=== PATIENT | female | born 1965 | race Caucasian/White ===

== ENCOUNTER 2017-07-03 17:51 | Inpatient (IN) | payer SELFPAY ==
[~2017-07-03] VITALS: Ht 152.4 cm; Wt 68.0 kg
--- NOTE | ~2017-07-03 | EC ---
PATIENT:JEWEL CHAHAL DATE OF SERVICE: 07/04/17 SEX: F MEDICAL RECORD: [id number] DATE OF : 67 LOCATION:[facility] AGE OF PATIENT: 51 ADMISSION DATE: 07/04/17 REFERRING PHYSICIAN: INTERPRETING PHYSICIAN: KEVIN KRISHNA MD ECHOCARDIOGRAM REPORT ECHO CHARGES 4 ECHO COMPLETE CLINICAL DIAGNOSIS: R TIA/ CHEST PAIN AND L ARM PAIN ECHOCARDIOGRAPHIC MEASUREMENTS (adult normal given) AC root (d.<3.7cm) 2.9 cm LV Septum d (<1.2 cm> 1.2 cm Valve Excursion 1.5 cm LV Septum (systole) 1.4 cm Left Atria (s.<4.0cm> 3.0 cm LVPW d(<1.2cm) 1.1 cm RV (d.<2.3cm) 2.7 cm LVPW (sytole) 1.4 cm LV diastole(<5.6CM) 4.3 cm MV E-F(>70mm/sec) cm LV systole 2.8 cm LVOT Diameter 1.7 cm MV exc.(>10mm) 2.2 cm Est.ejection fraction (50-75%) % Pericardial Effusion N DOPPLER: LVIT cm/sec A 76.0 cm/sec E 66.0 cm/sec LA cm/sec RVSP 19 mmHg LVOT 101 cm/sec AOP1/2T m/s Asc. Ao 134 cm/sec RVOT 69 cm/sec RA cm/sec PA 114 cm/sec AV Gradient Peak 7.23 mmHg AV Mean 4.32 mmHg AV Area 2.1 cm MV Gradient Peak 1.82 mmHg MV Mean 0.71 mmHg MV Area cm COMMENTS: Pelota Maker: 2 SHELBY ASHFORD Ham Smoker: 2 Dr. Mohr TAPE# PACS DATE OF SERVICE: 07/04/2017 Addendum FINDINGS: Difficult to visualize; however, there were no bubbles seen to cross from the right atrium into the left atrium upon this study. TRANSINT:[id number] Voice Confirmation ID: [id number] DOCUMENT ID: [id number] ECHOCARDIOGRAM REPORT [id number] TIRSOJEWEL KEVIN KRISHNA MD CC: [id number] DICTATION DATE: 07/05/17 0804 CORRUGATOR OPERATOR HELPER: 07/05/17 0814 ADM IN [address] [address]
[2017-07-03 18:26] LABS: BASOPHILS 0.3 % (0-2); EOSINOPHILS 0.9 % (0-7); HEMATOCRIT 42.6 % (36.0-48.0); HEMOGLOBIN 14.7 g/dL (12-16); IMMATURE GRANULOCYTES 0.2 % (0-5); LYMPHOCYTES 27.2 % (15-50); MCH 31.5 pg (26.0-34.0); MCHC 34.5 g/dL (31.0-37.0); MCV 91.4 fL (80.0-100.0); MEAN PLATELET VOLUME 10.4 fL (7.4-10.4); MONOCYTES 8.6 % (2-11); NEUTROPHILS 62.8 % (40-80); PLATELET COUNT 203 10x3/uL (130-400); RBC 4.66 10x6/uL (4.00-5.40); RDW 12.5 % (11.5-14.5); WBC 12.9 10x3/uL (4.8-10.8)
[2017-07-03 18:36] LABS: APTT 32.1 SECONDS (22.8-39.4); INR 0.97 (0.85-1.17); PROTIME 12.7 SECONDS (11.6-15.0)
[2017-07-03 18:50] LABS: ALBUMIN 4.1 g/dL (3.4-5.0); ALKALINE PHOSPHATASE 88 U/L (46-116); ALT (SGPT) 33 U/L (10-68); CALC OSMOLALITY 280 mosm/kg (275-300); CALCIUM 9.3 mg/dL (8.5-10.1); CARBON DIOXIDE 27.8 mmol/L (21.0-32.0); CHLORIDE - SERUM 106 mmol/L (98-107); CREATININE - SERUM 0.9 mg/dL (0.6-1.3); GLUCOSE 87 mg/dL (74-106); POTASSIUM - SERUM 4.2 mmol/L (3.5-5.1); PROTEIN - SERUM 7.7 g/dL (6.4-8.2); SODIUM 141 mmol/L (136-145); UREA NITROGEN 16 mg/dL (7-18); eGFR NON AFRICAN AMERICAN 70 mL/min (90-120)
[2017-07-03 19:00] LABS: CKMB 0.6 U/L (0.0-3.6); CREATINE KINASE 104 UL (21-215); TROPONIN-I < 0.017 ng/mL (0.000-0.060)
[2017-07-03 20:00] VITALS: BP 103/53
[2017-07-04] VITALS: BP 86/45
[2017-07-04 00:35] VITALS: BMI 29.3
[2017-07-04 01:48] LABS: CKMB 0.7 U/L (0.0-3.6); CREATINE KINASE 83 UL (21-215)
[2017-07-04 01:51] LABS: TROPONIN-I < 0.017 ng/mL (0.000-0.060)
--- NOTE | 2017-07-04 03:16 | NUR ---
213)rec'd.via w/c from er aao x3.denies blurred or double vision. c/o weakness left side. lan/wan engineer slightly weaker.assist to bathroom with moderate assist.encouraged to call for help when needing to get up. family member at bedside.rec.d, report from tahir keen states dr. villegas was notified of consult while pt in er. will continue to observe for any chges in neurostatus and follow current plan of care.
--- NOTE | 2017-07-04 03:57 | NUR ---
EYES CLOSED RESPIRATIONS WITH EASE AND UNLABORED. LKEFT SIDED WEAKNESS CONTINUES. ASSESSMENT DONE PER ADMIT PACKET.
[2017-07-04 04:00] VITALS: BP 98/53
--- NOTE | 2017-07-04 07:30 | NUR ---
ASSESSMENT COMPLETE. SL TO L HAND. 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 L SIDED WEAKNESS NOTED TO LUE. GAIT STEADY AT THIS TIME.
[2017-07-04 07:51] LABS: CKMB 0.3 U/L (0.0-3.6); CREATINE KINASE 76 UL (21-215)
[2017-07-04 07:53] LABS: TROPONIN-I < 0.017 ng/mL (0.000-0.060)
[2017-07-04 08:31] VITALS: BP 100/62
--- NOTE | 2017-07-04 09:35 | NUR ---
CALLED TO ROOM BY PATIENT'S . STATES THAT SHE HAVING THE SAME SYMPTOMS SHE WAS EXPERIENCING BEFORE COMING TO HOSPITAL. COMPLAINING OF CHEST PAIN AND PRESSURE TO L UPPER CHEST. DESCRIBES THE FEELING LIKE SOMEONE IS DRILLING THROUGH HER. VSS. BP 97/60 HR 75 O2 SAT 97% ON RA. TEMP 97.7.
--- NOTE | 2017-07-04 09:40 | NUR ---
EKG PERFORMED RESULTING IN SINUS RHYTHM. 02 2L PLACED ON PATIENT.
--- NOTE | 2017-07-04 09:50 | NUR ---
DR LLAMAS NOTIFIED OF PATIENT COMPLAINTS. ORDER RECEIVED FOR STAT CARDIAC ENZYMES AND CARDIOLOGY CONSULT.
--- NOTE | 2017-07-04 11:00 | NUR ---
DENIES ANY NEEDS AT PRESENT.
[2017-07-04 11:09] LABS: BASOPHILS 0.6 % (0-2); EOSINOPHILS 2.9 % (0-7); HEMATOCRIT 41.7 % (36.0-48.0); HEMOGLOBIN 14.1 g/dL (12-16); IMMATURE GRANULOCYTES 0.1 % (0-5); LYMPHOCYTES 34.4 % (15-50); MCH 31.4 pg (26.0-34.0); MCHC 33.8 g/dL (31.0-37.0); MCV 92.9 fL (80.0-100.0); MEAN PLATELET VOLUME 10.2 fL (7.4-10.4); MONOCYTES 9.7 % (2-11); NEUTROPHILS 52.3 % (40-80); PLATELET COUNT 197 10x3/uL (130-400); RBC 4.49 10x6/uL (4.00-5.40); RDW 12.4 % (11.5-14.5); WBC 7.8 10x3/uL (4.8-10.8)
[2017-07-04 11:40] LABS: ALBUMIN 3.5 g/dL (3.4-5.0); ALKALINE PHOSPHATASE 86 U/L (46-116); ALT (SGPT) 28 U/L (10-68); BILIRUBIN - TOTAL 0.47 mg/dL (0.2-1.3); CALC OSMOLALITY 278 mosm/kg (275-300); CALCIUM 8.6 mg/dL (8.5-10.1); CARBON DIOXIDE 30.1 mmol/L (21.0-32.0); CHLORIDE - SERUM 105 mmol/L (98-107); CREATINE KINASE 76 UL (21-215); GLUCOSE 89 mg/dL (74-106); POTASSIUM - SERUM 4.3 mmol/L (3.5-5.1); SODIUM 139 mmol/L (136-145); UREA NITROGEN 18 mg/dL (7-18); eGFR NON AFRICAN AMERICAN 62 mL/min (90-120)
[2017-07-04 11:41] LABS: TROPONIN-I < 0.017 ng/mL (0.000-0.060)
[2017-07-04 12:11] LABS: LDL-HDL RATIO 3.3 ratio (1.5-3.5)
--- NOTE | 2017-07-04 12:26 | NUR ---
OFF FLOOR TO MRI VIA .
[2017-07-04 12:40] VITALS: BP 100/57
[2017-07-04 14:02] VITALS: Ht 152.4 cm; Wt 68.0 kg
[2017-07-04 14:30] LABS: CKMB 0.4 U/L (0.0-3.6); CREATINE KINASE 78 UL (21-215)
[2017-07-04 14:33] LABS: TROPONIN-I < 0.017 ng/mL (0.000-0.060)
--- NOTE | 2017-07-04 15:13 | NUR ---
REFUSING TO WEAR SCD'S AT THIS TIME.
--- NOTE | 2017-07-04 17:47 | NUR ---
NO CHANGES NOTED AT PRESENT.
--- NOTE | 2017-07-04 19:17 | NUR ---
OT NOTES: PT COMPLETED BED MOB WITH SBA.PT COMPLETED DYNAMIC SITTING BALANCE AXS AT EOB WITH SBA. PT COMPLETED SIT TO STAND WITH SBA. PT COMPLETED UB DRESSING WITH SBA. PT COMPLETED GROOMING TASKS WITH SBA. HEIN ADVISED PT TO REQUEST ASSIST TO BATHROOM TO DECREASE FALL RISK. THANK YOU, MELVINA ORO/Lorie
--- NOTE | 2017-07-04 19:30 | NUR ---
INTRODUCED SELF TO PATIENT. VERY PLEASENT. REPORTED A HEADACHE 6/10 IN THE BACK OF HER HEAD AND PAIN IN THE LEFT SIDE OF CHEST AND LEFT ARM RATED 7/10. PATIENT STATED "I HAVE HAD CONSTANT PAIN IN MY CHEST SINCE YESTERDAY, THE PAIN JUST GETS WORSE SOMETIMES BUT IT IS ALWAYS THERE." ASKED HER ABOUT THE PAIN IN HER CHEST EARLIER IN THE DAY WHEN THEY CALLED A RAPID RESPONES, SHE STATED "IT WAS A 9/10 THEN." ASKED HER ABOUT HER HEADACHE, SHE STATED "IT COMES AND GOES." PATIENT DENIES NEEDS.
[2017-07-04 19:48] LABS: CREATINE KINASE 74 UL (21-215); TROPONIN-I < 0.017 ng/mL (0.000-0.060)
[2017-07-04 20:00] VITALS: BP 118/58
[2017-07-05] VITALS: BP 104/61
[2017-07-05 02:01] LABS: CREATINE KINASE 64 UL (21-215); TROPONIN-I < 0.017 ng/mL (0.000-0.060)
[2017-07-05 04:00] VITALS: BP 105/61
[2017-07-05 06:06] LABS: BASOPHILS 0.6 % (0-2); HEMATOCRIT 41.1 % (36.0-48.0); HEMOGLOBIN 13.7 g/dL (12-16); IMMATURE GRANULOCYTES 0.1 % (0-5); LYMPHOCYTES 41.3 % (15-50); MCH 31.1 pg (26.0-34.0); MCHC 33.3 g/dL (31.0-37.0); MCV 93.2 fL (80.0-100.0); MEAN PLATELET VOLUME 10.2 fL (7.4-10.4); MONOCYTES 10.6 % (2-11); NEUTROPHILS 44.4 % (40-80); PLATELET COUNT 200 10x3/uL (130-400); RBC 4.41 10x6/uL (4.00-5.40); RDW 12.3 % (11.5-14.5); WBC 8.6 10x3/uL (4.8-10.8)
[2017-07-05 07:15] LABS: ALBUMIN 3.3 g/dL (3.4-5.0); ANION GAP 10.1 mmol/L (8-16); BILIRUBIN - TOTAL 0.36 mg/dL (0.2-1.3); CALCIUM 8.7 mg/dL (8.5-10.1); CARBON DIOXIDE 29.4 mmol/L (21.0-32.0); POTASSIUM - SERUM 4.5 mmol/L (3.5-5.1); PROTEIN - SERUM 6.8 g/dL (6.4-8.2)
--- NOTE | 2017-07-05 07:30 | NUR ---
PATIENT RECEIVED IN HIGH PAGAN POSITION ALERT WITH FAMILY PRESENT. NO SIGNS OF DISTRESS NOTED. DENIES NEEDS. SIDE RAILS UP X2. BED IN LOW POSITION. CALL LIGHT IN REACH.
[2017-07-05 07:58] VITALS: BP 101/64
--- NOTE | 2017-07-05 08:25 | NUR ---
PATIENT SITTING UP ON SIDE OF BED ALERT. NO SIGNS OF DISTRESS NOTED. SCHEDULED MEDICATION ADMINISTERED. BED IN LOW POSITION. CALL LIGHT IN REACH.
--- NOTE | 2017-07-05 11:12 | EC ---
PATIENT:JEWEL CHAHAL DATE OF SERVICE: 07/04/17 SEX: F MEDICAL RECORD: [id number] DATE OF : 67 LOCATION:[facility] AGE OF PATIENT: 51 ADMISSION DATE: 07/04/17 REFERRING PHYSICIAN: INTERPRETING PHYSICIAN: CHEYANNE COVARRUBIAS MD ECHOCARDIOGRAM REPORT ECHO CHARGES 4 ECHO COMPLETE CLINICAL DIAGNOSIS: R TIA/ CHEST PAIN AND L ARM PAIN ECHOCARDIOGRAPHIC MEASUREMENTS (adult normal given) AC root (d.<3.7cm) 2.9 cm LV Septum d (<1.2 cm> 1.2 cm Valve Excursion 1.5 cm LV Septum (systole) 1.4 cm Left Atria (s.<4.0cm> 3.0 cm LVPW d(<1.2cm) 1.1 cm RV (d.<2.3cm) 2.7 cm LVPW (sytole) 1.4 cm LV diastole(<5.6CM) 4.3 cm MV E-F(>70mm/sec) cm LV systole 2.8 cm LVOT Diameter 1.7 cm MV exc.(>10mm) 2.2 cm Est.ejection fraction (50-75%) % Pericardial Effusion N DOPPLER: LVIT cm/sec A 76.0 cm/sec E 66.0 cm/sec LA cm/sec RVSP 19 mmHg LVOT 101 cm/sec AOP1/2T m/s Asc. Ao 134 cm/sec RVOT 69 cm/sec RA cm/sec PA 114 cm/sec AV Gradient Peak 7.23 mmHg AV Mean 4.32 mmHg AV Area 2.1 cm MV Gradient Peak 1.82 mmHg MV Mean 0.71 mmHg MV Area cm COMMENTS: Pillowcase Folder: Attila ASHFORD Saw Handle Assembler: 2 Dr. Mohr TAPE# PACS DATE OF SERVICE: 07/04/2017 Echocardiogram FINDINGS: 1. Left ventricular chamber size is within normal limits. Left ventricular systolic function is normal. Overall ejection fraction estimated at 55%. 2. Left atrium, right atrium, and right ventricular chamber sizes are within normal limits. 3. Valvular structures have normal structure and motion. ECHOCARDIOGRAM REPORT [id number] JEWEL CHAHAL 4. Doppler interrogation only reveals trace tricuspid regurgitation, no other valvular insufficiency or stenosis. 5. No evidence of pericardial effusion or left ventricular thrombus. TRANSINT:[id number] Voice Confirmation ID: [id number] DOCUMENT ID: [id number] CHEYANNE COVARRUBIAS MD at 1112 CC: [id number] DICTATION DATE: 07/04/17 1247 HVAC DESIGN MECHANICAL ENGINEER: 07/04/17 1904 ADM IN [facility] [address] [id number]
[2017-07-05] MEDS ORDERED: ASPIRIN325 MG PO (12:04)
[2017-07-05 12:24] VITALS: BP 115/69
--- NOTE | 2017-07-05 13:10 | NUR ---
IV TO LEFT HAND D/C WITH CATH TIP INTACT. SITE COVERED WITH GAUZE AND BANDAID.
--- NOTE | 2017-07-05 14:00 | NUR ---
D/C TEACHING PROVIDED TO PATIENT AND FAMILY. STATES UNDERSTANDING. DENIES QUESTIONS.
--- NOTE | 2017-07-05 14:05 | NUR ---
PATIENT D/C HOME WITH FAMILY. TRANSFERRED DOWNSTAIRS VIA WHEELCHAIR WITH VOLUNTEER.
== END 2017-07-05 14:11 | disposition home or self-care (01) | DRG 69 ==
LOC: D.ER 17:51 → D.MS 20:15 → OBSVTIME 20:15 → D.MS 20:15
PROVIDERS: Emergency Medicine; Family Medicine; ADMIT Family Medicine Adult Medicine
DX: G45.9 Transient cerebral ischemic attack, unspecified (principal); G43.109 Migraine with aura, not intractable, without status migrainosus; R53.1 Weakness; R07.89 Other chest pain; Z87.891 Personal history of nicotine dependence

== ENCOUNTER 2018-02-18 18:40 | Emergency (ER) | payer MEDICAID ==
[2017-07-04 14:02] VITALS: BMI 29.2
[~2018-02-18 18:40] MED LIST: ASPIRIN325 MG PO
[2018-02-18 19:28] LABS: BASOPHILS 0.2 % (0-2); EOSINOPHILS 0.6 % (0-7); HEMATOCRIT 41.1 % (36.0-48.0); HEMOGLOBIN 13.9 g/dL (12-16); IMMATURE GRANULOCYTES 0.3 % (0-5); LYMPHOCYTES 15.9 % (15-50); MCH 31.3 pg (26.0-34.0); MCHC 33.8 g/dL (31.0-37.0); MCV 92.6 fL (80.0-100.0); MEAN PLATELET VOLUME 9.9 fL (7.4-10.4); MONOCYTES 7.8 % (2-11); NEUTROPHILS 75.2 % (40-80); PLATELET COUNT 212 10x3/uL (130-400); RBC 4.44 10x6/uL (4.00-5.40); RDW 12.7 % (11.5-14.5); WBC 14.4 10x3/uL (4.8-10.8)
[2018-02-18 19:42] LABS: ALBUMIN 3.6 g/dL (3.4-5.0); ANION GAP 11.8 mmol/L (8-16); BILIRUBIN - TOTAL 0.4 mg/dL (0.2-1.3); CALCIUM 8.7 mg/dL (8.5-10.1); CARBON DIOXIDE 28.1 mmol/L (21.0-32.0); CREATININE - SERUM 0.9 mg/dL (0.6-1.3); POTASSIUM - SERUM 3.9 mmol/L (3.5-5.1); PROTEIN - SERUM 7.5 g/dL (6.4-8.2)
== END 2018-02-18 21:20 | disposition home or self-care (01) ==
LOC: D.ER 18:40
PROVIDERS: Family Medicine
DX: K04.7 Periapical abscess without sinus (principal)

== ENCOUNTER → 2018-02-19 14:46 | Outpatient (CLI) | payer MEDICAID ==
[2017-07-04 14:02] VITALS: BMI 29.2
== END | disposition home or self-care (01) ==
LOC: D.MRI 14:46
DX: S80.01XA Contusion of right knee, initial encounter (principal); X58.XXXA Exposure to other specified factors, initial encounter; Y93.9 Activity, unspecified; Y92.9 Unspecified place or not applicable

== ENCOUNTER → 2018-09-24 17:20 | Outpatient (CLI) | payer MEDICAID ==
[2017-07-04 14:02] VITALS: BMI 29.2
== END | disposition home or self-care (01) ==
LOC: D.MAMMO 10:30
DX: Z12.31 Encounter for screening mammogram for malignant neoplasm of breast (principal)

== ENCOUNTER 2019-02-12 12:24 | Observation (INO) | payer MEDICAID ==
[~2019-02-12] VITALS: Ht 152.4 cm; Wt 63.6 kg
[2019-02-12] MEDS ORDERED: IBUPROFEN800 MG PO (12:32)
--- NOTE | 2019-02-12 12:40 | NUR ---
STROKE BAND [id number] PLACED ON PATIENT
--- NOTE | 2019-02-12 12:40 | NUR ---
FSBS= 86 MG/DL
[2019-02-12 12:45] VITALS: BP 124/72
[2019-02-12 12:46] VITALS: BP 125/71
--- NOTE | 2019-02-12 12:47 | NUR ---
TO CT VIA STRETCHER WITH RN
--- NOTE | 2019-02-12 12:52 | NUR ---
TANNER PLATT/DR TOMAS CALLED IN VIA VIDEO AND NIHSS ASSESSMENT COMPLETED. DR JANG AT . DR CORDOVA DOES NOT RECOMMEND TPA.
[2019-02-12 13:00] VITALS: BP 121/73
[2019-02-12 13:05] LABS: BASOPHILS 0.5 % (0-2); EOSINOPHILS 1.4 % (0-7); HEMATOCRIT 39.2 % (36.0-48.0); HEMOGLOBIN 13.6 g/dL (12-16); IMMATURE GRANULOCYTES 0.1 % (0-5); LYMPHOCYTES 38.9 % (15-50); MCH 31.9 pg (26.0-34.0); MCHC 34.7 g/dL (31.0-37.0); MCV 91.8 fL (80.0-100.0); MEAN PLATELET VOLUME 10.1 fL (7.4-10.4); NEUTROPHILS 52.1 % (40-80); PLATELET COUNT 211 10x3/uL (130-400); RBC 4.27 10x6/uL (4.00-5.40); RDW 12.9 % (11.5-14.5); WBC 8.3 10x3/uL (4.8-10.8)
[2019-02-12 13:14] LABS: APTT 34.1 SECONDS (22.8-39.4); INR 1.12 (0.85-1.17); PROTIME 13.9 SECONDS (11.6-15.0)
[2019-02-12 13:19] LABS: ALBUMIN 3.7 g/dL (3.4-5.0); ALKALINE PHOSPHATASE 71 U/L (46-116); ALT (SGPT) 25 U/L (10-68); BILIRUBIN - TOTAL 0.38 mg/dL (0.2-1.3); CALC OSMOLALITY 277 mosm/kg (275-300); CALCIUM 8.6 mg/dL (8.5-10.1); CARBON DIOXIDE 27.1 mmol/L (21.0-32.0); CHLORIDE - SERUM 104 mmol/L (98-107); CREATININE - SERUM 0.8 mg/dL (0.6-1.3); GLUCOSE 94 mg/dL (74-106); POTASSIUM - SERUM 4.1 mmol/L (3.5-5.1); SODIUM 139 mmol/L (136-145); UREA NITROGEN 12 mg/dL (7-18); eGFR NON AFRICAN AMERICAN 80 mL/min (90-120)
[2019-02-12 13:31] LABS: CKMB 2.7 U/L (0.0-3.6); CREATINE KINASE 129 UL (21-215); MAGNESIUM - SERUM 1.9 mg/dL (1.8-2.4); THYROID STIMULATING HORMONE 0.58 uIU/mL (0.36-3.74); TROPONIN-I < 0.017 ng/mL (0.000-0.060)
[2019-02-12 13:32] VITALS: BP 111/73
--- NOTE | 2019-02-12 15:57 | NUR ---
PATIENT ADMITTED TO ROOM 2216 FROM ER. LUNGS CLEAR BILATERALLY IN ALL RICK. HEART SOUNDS HEARD S1 AND S2 IN ALL RICK. BOWEL SOUNDS ACTIVE X 4. SKIN INTACT WITHOUT REDNESS. BRACE NOTED TO RIGHT KNEE. STATES HAS KNEE PAIN BUT DOESN'T WANT KNEE REPLACEMENT SO USES BRACE. SCD EDUCATION PROVIDED AND SCDS APPLIED. DENIES PAIN. DENIES NEEDS.
[2019-02-12 16:29] VITALS: BP 131/65; BMI 27.3
--- NOTE | 2019-02-12 16:44 | NUR ---
PATIENT RESTING IN BED WITH AT BEDSIDE. DENIES PAIN. DENIES NEEDS
[2019-02-12 17:14] VITALS: Ht 152.4 cm; Wt 63.6 kg
[2019-02-12] MEDS ORDERED: ASPIRIN325 MG PO (17:15)
--- NOTE | 2019-02-12 18:46 | NUR ---
IVS REMOVED FROM RIGHT HAND AND LEFT AC WITH TIPS INTACT. DISCHARGE EDUCATION PROVIDED BOTH WRITTEN AND VERBAL. DENIES FURTHER QUESTIONS. PATIENT DISCHARGED HOME WITH WITH ALL BELONGINGS.
== END 2019-02-12 18:48 | disposition home or self-care (01) ==
LOC: D.ER 12:24 → D.EDHOLD 14:25 → OBSVTIME 14:26 → D.MS 14:34
PROVIDERS: Emergency Medicine; ADMIT Family Medicine; ATTEND Family Medicine
DX: G45.9 Transient cerebral ischemic attack, unspecified (principal); Z86.73 Personal history of transient ischemic attack (TIA), and cerebral infarction without residual deficits; Z72.0 Tobacco use